=== PATIENT | female | born 1990 | race African-American/Black ===

== ENCOUNTER 2019-08-09 13:01 | Emergency (ER) | payer OTHER ==
[~2019-08-09] VITALS: Ht 162.6 cm; Wt 120.0 kg
[2019-08-09 13:21] VITALS: BP 156/91
[2019-08-09] MEDS ORDERED: DEXAMETHASONE SOD PHOS 20 MG/5 ML VIAL. PO ONE (13:30)
[2019-08-09] MEDS ORDERED: ORPHENADRINE CITRATE 60 MG/2 ML VIAL. IM ONE (13:30)
--- NOTE | 2019-08-09 13:36 | PHYS DOC ---
General Adult EDM: Chief Complaint: DENTAL PROBLEM HPI: HPI: Patient is a 29 year old AA female who presents to the emergency department with complaints of headache behind her right eye that is similar to her history of migraines that began today and lower left dental pain that began a few days ago. Has any fever, cough, sore throat, shortness of breath, wheezing, nausea, vomiting, diarrhea, abdominal pain, rash, ear pain, or vision changes. She currently rates her pain a 10 out of 10 on the pain scale, states she has tried taking naproxen and Tylenol at home with no relief of her headache. She denies any aggravating factors. (GREGORY YANES APRN) Review of Systems: Review of Systems: Constitutional: Denies fever or chills. [] Eyes: Denies change in visual acuity. [] HENT: Denies nasal congestion or sore throat; see HPI [] Respiratory: Denies cough or shortness of breath. [] Cardiovascular: Denies chest pain or edema. [] GI: Denies abdominal pain, nausea, vomiting, or diarrhea. [] : Denies dysuria. [] Musculoskeletal: Denies back pain or joint pain. [] Integument: Denies rash. [] Neurologic: Denies focal weakness or sensory changes; see HPI Endocrine: Denies polyuria or polydipsia. [] Lymphatic: Denies swollen glands. [] Psychiatric: Denies depression or anxiety. [] (GREGORY YANES APRN) Heart Score: Risk Factors: Risk Factors: DM, Current or recent (<one month) smoker, HTN, HLP, family history of CAD, obesity. Risk Scores: Score 0 - 3: 2.5% MACE over next 6 weeks - Discharge Home Score 4 - 6: 20.3% MACE over next 6 weeks - Admit for Clinical Observation Score 7 - 10: 72.7% MACE over next 6 weeks - Early Invasive Strategies (GREGORY YANES ACCURACY EXPERT) Current Medications: Current Medications Medications (Trade) Dose Ordered Sig/Katie Start Time Stop Time Status Last Admin Dose Admin Dexamethasone Sodium Phosphate (Decadron) 10 mg 1X ONCE 08/09/19 13:30 08/09/19 13:31 UNV Orphenadrine Citrate (Norflex) 60 mg 1X ONCE 08/09/19 13:30 08/09/19 13:31 UNV (GREGORY YANES APRN) Physical Exam: PE: Constitutional: Well developed, well nourished, no acute distress, non-toxic appearance. [] HENT: Normocephalic, atraumatic, bilateral external ears normal, oropharynx moist, no oral exudates, nose normal; really was not overly impressed; scattered dental decay with gingival edema and erythema noted in the been followed lower left quadrant of the mouth with a large amount of plaque noted to teeth, no visible abscess consistent with gingivitis called on and infected dental caries [] Eyes: PERRLA, EOMI, conjunctiva normal, no discharge. [] Neck: Normal range of motion, no tenderness, supple, no stridor. [] Cardiovascular:Heart rate regular rhythm Lungs & Thorax: Bilateral breath sounds clear to auscultation, Respirations even and unlabored, no retractions, no respiratory distress [] Skin: Warm, dry, no erythema, no rash. [] Back: No tenderness Extremities: No cyanosis, no clubbing, ROM intact, no edema. [] Neurologic: Alert and oriented X 3, CN II through VII intact, no focal deficits noted. [] Psychologic: Affect normal, judgement normal, mood normal. [] (GREGORY YANES APRN) EKG: EKG: [] (GREGORY YANES APRN) Radiology/Procedures: Radiology/Procedures: [] (GREGORY YANES APRN) Course & Med Decision Making: Course & Med Decision Making Pertinent Labs and Imaging studies reviewed. (See chart for details) Patient was given 60 mg of IM orphenadrine in the emergency department and 10 mg of p.o. Decadron for relief of her headache. A prescription is written for penicillin VK and Peridex. The patient was provided with a dental referral list for follow-up. She was encouraged to follow-up with her primary care doctor if her headaches persist, return to the emergency room if she develops a fever or symptoms worsen. Patient verbalized an understanding of home care, medications, follow-up, and return to ED instructions and was in agreement with the plan of care. [] (GREGORY YANES APRN) Ifeanyi Disclaimer: Dragbebeto Disclaimer: This electronic medical record was generated, in whole or in part, using a voice recognition dictation system. (GREGORY YANES APRN) Departure Departure Impression: Primary Impression: Migraine Qualified Codes: G43.909 - Migraine, unspecified, not intractable, without status migrainosus Additional Impressions: Infected dental caries Gingivitis, acute Dentalgia Disposition: HOME, SELF-CARE Condition: STABLE Referrals: EDWIN LYNNE MD (PCP) Patient Instructions: Dental Caries, Dental Pain, [id number], Gingivitis, [id number], Migraine Headache, [id number]-[id number]-[id number] Additional Instructions: Fill prescription(s) and use as directed. I recommend that you go home and rest in a cool quiet room. Take Tylenol or ibuprofen as needed for pain. Follow up with dentist using the referral list provided. Return to the ER if symptoms worsen or you develop a fever. Scripts Chlorhexidine Gluconate (PERIDEX) 15 Ml Mouthwash 15 ML SWSP BID for 7 Days, #473 ML 0 Refills [place] teeth before using to prevent staining. Swish for approximately 30 seconds before spitting. Prov: GREGORY YANES APRN 08/09/19 Penicillin V Potassium (PENICILLIN V POTASSIUM) 500 Mg Tablet 1 TAB PO QID for 10 Days, #40 TAB 0 Refills Prov: GREGORY YANES APRN 08/09/19 Attending Signature Attending Signature I have reviewed the PA/BLOCK CAPTAIN's note and plan of care. I was available for consultation as needed during the patient's visit in the emergency department. I agree with the clinical impression, plan, and disposition. (TWYLA DODSON DO) GREGORY YANES APRN Aug 09, 2019 13:36 TWYLA DODSON DO Aug 09, 2019 23:21
[2019-08-09] MEDS ORDERED: CHLO15MO2 SWSP (13:51)
[2019-08-09] MEDS ORDERED: PENI500T PO (13:51)
== END 2019-08-09 14:27 | disposition home or self-care (01) ==
LOC: ER 13:01
DX: G43.909 Migraine, unspecified, not intractable, without status migrainosus (principal); K04.7 Periapical abscess without sinus; K05.00 Acute gingivitis, plaque induced
CPT/HCPCS: 96372; 99283; J1100; J2360